=== PATIENT | male | born 1960 | race Caucasian/White ===

== ENCOUNTER 2023-09-17 17:32 | Inpatient (IN) | payer OTHER ==
[2023-09-17] MEDS: fentaNYL 100 MCG/2 ML SDV IVPUSH ONE ×3 (18:30→20:10)
[2023-09-17] MEDS: Ondansetron 4 MG/2 ML SDV IVPUSH ONE (18:32)
[2023-09-17] MEDS: Lactated Ringers 1,000 ML IV ONE (18:45)
[2023-09-17] MEDS: fentaNYL 100 MCG/2 ML SDV ONE (19:07)
[2023-09-17] MEDS: Ondansetron 4 MG/2 ML SDV ONE (19:08)
[2023-09-17] MEDS ORDERED: Naloxone 0.4 MG/ML SDV IVPUSH PRN ×2 (19:17→20:05)
[2023-09-17 19:18] LABS: BASOPHILS ABSOLUTE AUTO 0.1 K/mm3 (0.0-0.2); BASOPHILS PERCENT AUTO 0.5 % (0.0-1.0); EOSINOPHILS ABSOLUTE AUTO 0.1 K/mm3 (0.0-0.4); EOSINOPHILS PERCENT AUTO 0.5 % (0.0-6.0); HEMATOCRIT 43.4 % (42.0-52.0); HEMOGLOBIN 14.8 gm/dl (14.0-18.0); IMMATURE GRAN ABSOLUTE AUTO 0.06 K/mm3 (0.00-0.05); IMMATURE GRAN PERCENT AUTO 0.4 % (0.0-0.4); LYMPHOCYTES ABSOLUTE AUTO 1.4 K/mm3 (1.0-4.8); LYMPHOCYTES PERCENT AUTO 9.1 % (24.0-44.0); MEAN CORPUSCULAR HGB CONC 34.1 g/dl (32.0-36.0); MEAN PLATELET VOLUME 10.4 fl (9.4-12.4); MONOCYTES ABSOLUTE AUTO 0.7 K/mm3 (0.0-0.8); MONOCYTES PERCENT AUTO 4.7 % (0.0-8.0); NEUTROPHILS ABSOLUTE AUTO 12.6 K/mm3 (1.8-7.7); NEUTROPHILS PERCENT AUTO 84.8 % (41.0-71.0); PLATELET COUNT,PLT 225 K/mm3 (150-400); RED BLOOD CELL COUNT 4.77 M/mm3 (4.52-5.90); WHITE BLOOD CELL COUNT,WBC 14.84 K/mm3 (3.9-11.3)
[2023-09-17 19:40] LABS: ALBUMIN 3.7 g/dl (3.4-5.0); ANION GAP 18.8 (5-15); BILIRUBIN TOTAL 0.4 mg/dL (0.2-1.0); BUN/CREATININE RATIO 6.3 (14-18); CREATININE 1.6 mg/dL (0.7-1.3); EST CRCL DRUG DOSING (CG) 51.64 mL/min; POTASSIUM,K 3.8 mEq/L (3.5-5.1); PROTEIN TOTAL,TP 7.3 g/dl (6.4-8.2)
[2023-09-17] MEDS: Sodium Chloride 0.9% 10 ML Syringe FLUSH ONE (20:10)
[2023-09-17 20:35] LABS: LACTIC ACID 2.1 mmol/L (0.4-2.0)
[2023-09-17] MEDS: Iopamidol 612 MG/ML 30 ML SDV IVPUSH ONE (20:44)
[2023-09-17] MEDS: Iopamidol 612 MG/ML 100 ML Bottle IVPUSH ONE (20:44)
[2023-09-17] MEDS: Sodium Chloride 0.9% 100 ML IV SCH (20:44)
[2023-09-17] MEDS: HYDROmorphone 1 MG/ML Syringe IVPUSH ONE (20:58)
[2023-09-17] MEDS: Benzocaine 20% Topical Spray UD MUCMEM ONE (21:48)
[2023-09-17] MEDS: cefTRIAXone 2 GM in Sodium Chloride 0.9% 100 ML IV ONE (22:15)
[2023-09-17] MEDS: Sodium Chloride 0.9% 1,000 ML IV SCH (23:04)
[2023-09-18 06:53] LABS: BASOPHILS ABSOLUTE AUTO 0.1 K/mm3 (0.0-0.2); BASOPHILS PERCENT AUTO 0.3 % (0.0-1.0); EOSINOPHILS ABSOLUTE AUTO 0.1 K/mm3 (0.0-0.4); EOSINOPHILS PERCENT AUTO 0.6 % (0.0-6.0); HEMATOCRIT 42.9 % (42.0-52.0); HEMOGLOBIN 14.7 gm/dl (14.0-18.0); IMMATURE GRAN ABSOLUTE AUTO 0.04 K/mm3 (0.00-0.05); IMMATURE GRAN PERCENT AUTO 0.3 % (0.0-0.4); LYMPHOCYTES ABSOLUTE AUTO 1.5 K/mm3 (1.0-4.8); LYMPHOCYTES PERCENT AUTO 9.8 % (24.0-44.0); MEAN CORPUSCULAR HEMOGLOBIN 31.3 pg (28.0-32.0); MEAN CORPUSCULAR HGB CONC 34.3 g/dl (32.0-36.0); MEAN CORPUSCULAR VOLUME 91.3 fl (83.0-99.0); MEAN PLATELET VOLUME 10.3 fl (9.4-12.4); MONOCYTES ABSOLUTE AUTO 1.1 K/mm3 (0.0-0.8); MONOCYTES PERCENT AUTO 7.3 % (0.0-8.0); NEUTROPHILS ABSOLUTE AUTO 12.6 K/mm3 (1.8-7.7); NEUTROPHILS PERCENT AUTO 81.7 % (41.0-71.0); PLATELET COUNT,PLT 221 K/mm3 (150-400); WHITE BLOOD CELL COUNT,WBC 15.43 K/mm3 (3.9-11.3)
[2023-09-18 07:23] LABS: A/G RATIO 0.9 (1-2); ALBUMIN 3.2 g/dl (3.4-5.0); ANION GAP 13.8 (5-15); BILIRUBIN TOTAL 0.4 mg/dL (0.2-1.0); BUN/CREATININE RATIO 8.6 (14-18); CALCIUM 8.4 mg/dL (8.5-10.1); CREATININE 1.4 mg/dL (0.7-1.3); EST CRCL DRUG DOSING (CG) 59.01 mL/min; POTASSIUM,K 3.8 mEq/L (3.5-5.1); PROTEIN TOTAL,TP 6.9 g/dl (6.4-8.2)
== END 2023-09-17 21:25 | disposition home or self-care (01) | DRG 388 ==
LOC: JD.ED 17:32 → JD.MS 21:25
PROVIDERS: ADMIT Family Medicine; ATTEND Family Medicine
DX: K56.609 Unspecified intestinal obstruction, unspecified as to partial versus complete obstruction (principal); J18.9 Pneumonia, unspecified organism; K50.919 Crohn's disease, unspecified, with unspecified complications; I25.2 Old myocardial infarction; I10 Essential (primary) hypertension; H91.90 Unspecified hearing loss, unspecified ear; D72.829 Elevated white blood cell count, unspecified; R79.89 Other specified abnormal findings of blood chemistry; F17.210 Nicotine dependence, cigarettes, uncomplicated; Z95.5 Presence of coronary angioplasty implant and graft; Z79.82 Long term (current) use of aspirin; Z98.890 Other specified postprocedural states; Z79.899 Other long term (current) drug therapy; Z86.16 Personal history of COVID-19
CPT/HCPCS: 36415; 71045; 71045-26; 74018; 74018-26; 74177; 74177-26; 80053; 83605; 83690; 85025; 99285; J0696; J1170; J2405; J3010; J3490; J7030; J7120; Q9967